=== PATIENT | female | born 1965 | race Caucasian/White ===

== ENCOUNTER 2018-06-12 21:17 | Inpatient (IN) | payer MEDICAID ==
[~2018-06-12] VITALS: Ht 304.8 cm; Wt 93.0 kg
[2018-06-12] MEDS ORDERED: ASPIRIN 81MG TABLET PO ONE (22:45)
[2018-06-12] MEDS ORDERED: NITROGLYCERIN 0.4MG TABLET SL SL PRN (22:45)
[2018-06-12 23:53] LABS: BASOPHILS % 0.4 % (0.0-2.0); HEMATOCRIT. 39.8 % (36.0-48.0); HEMOGLOBIN. 13.3 g/dL (12.0-16.0); LYMPHOCYTES % 37.8 % (20.0-50.0); MEAN CORPUSCULAR HEMOGLOBIN 26.8 pg (28.0-32.0); MEAN CORPUSCULAR VOLUME 80.1 fL (81.0-99.0); MEAN PLATELET VOLUME 9.1 fl (7.4-10.4); MONOCYTES % 5.1 % (2.0-8.0); NEUTROPHILS % 54.7 % (40.0-76.0); PLATELET 262 x1000/uL (130-400); RED BLOOD CELL COUNT 4.97 mill/uL (4.2-5.4)
[2018-06-13 00:03] LABS: D-DIMER 0.21 mg/L FEU (<0.50); PARTIAL THROMBOPLASTIN TIME 26.8 sec (23.4-31.0)
[2018-06-13 00:04] LABS: CHLORIDE 104 mEq/L (98-107)
[2018-06-13 09:00] VITALS: BP 130/72
[2018-06-13 09:10] VITALS: BP 130/72
[2018-06-13] MEDS ORDERED: ACETAMINOPHEN 325MG TABLET PO PRN (10:45)
[2018-06-13] MEDS ORDERED: ONDANSETRON HCL 4MG/2ML INJ IV PRN (10:45)
[2018-06-13] MEDS ORDERED: CLONIDINE 0.1MG TABLET PO PRN (10:45)
[2018-06-13] MEDS ORDERED: IPRATROPIUM/ALBUTEROL 0.5-3(2.5)MG/3ML NEB INH PRN (10:45)
[2018-06-13] MEDS ORDERED: MAGNESIUM/ALUMINUM HYDROXIDE/SIMETHICONE 30ML UDC PO PRN (10:45)
[2018-06-13] MEDS ORDERED: DEXTROSE 50% WATER 50ML SYRINGE IV PRN (11:45)
[2018-06-13 12:06] VITALS: BP 120/76
[2018-06-13] MEDS: BLOOD SUGAR DIAGNOSTIC STRIP TEST SCH ×3 (12:27→21:00)
[2018-06-13] MEDS: INSULIN LISPRO 100 UNITS/ML SUBCUT SCH ×3 (12:50→21:37)
[2018-06-13 16:14] LABS: CREATINE KINASE 113 IU/L (26-192); CREATINE KINASE MB FRACTION < 1.0 ng/mL (0.5-3.6)
[2018-06-13] MEDS: HYDROCODONE/ACETAMINOPHEN 5/325MG TABLET PO PRN (18:35)
[2018-06-13 20:00] VITALS: BP 114/69
[2018-06-14 00:01] VITALS: BP 113/68
[2018-06-14 00:15] LABS: CREATINE KINASE 101 IU/L (26-192); CREATINE KINASE MB FRACTION < 1.0 ng/mL (0.5-3.6)
[2018-06-14 04:00] VITALS: BP 111/75
[2018-06-14 06:49] LABS: BASOPHILS % 0.4 % (0.0-2.0); EOSINOPHILS % 3.1 % (0.0-5.0); HEMATOCRIT. 41.7 % (36.0-48.0); HEMOGLOBIN. 13.8 g/dL (12.0-16.0); LYMPHOCYTES % 39.6 % (20.0-50.0); MEAN CORPUSCULAR HEMOGLOBIN 26.6 pg (28.0-32.0); MEAN CORPUSCULAR VOLUME 80.4 fL (81.0-99.0); MEAN PLATELET VOLUME 9.3 fl (7.4-10.4); MONOCYTES % 5.8 % (2.0-8.0); NEUTROPHILS % 51.1 % (40.0-76.0); PLATELET 273 x1000/uL (130-400); RED BLOOD CELL COUNT 5.19 mill/uL (4.2-5.4); RED CELL DISTRIBUTION WIDTH 13.8 % (11.6-14.6)
[2018-06-14 06:54] LABS: CHLORIDE 102 mEq/L (98-107)
[2018-06-14 07:20] LABS: HDL CHOLESTEROL 35 mg/dL (40-59); LDL CHOLESTEROL 127 mg/dL (5-100); T4 FREE 1.06 ng/dL (0.76-1.46)
[2018-06-14] MEDS: BLOOD SUGAR DIAGNOSTIC STRIP TEST SCH ×4 (07:20→21:00)
[2018-06-14 08:40] VITALS: BP 134/58
[2018-06-14] MEDS: INSULIN LISPRO 100 UNITS/ML SUBCUT SCH ×4 (08:47→21:00)
[2018-06-14] MEDS: ASPIRIN 81MG EC TABLET PO SCH (08:48)
[2018-06-14 12:17] VITALS: BP 112/64
[2018-06-14 16:17] VITALS: BP 117/68
[2018-06-14 20:00] VITALS: BP 126/64
[2018-06-14] MEDS: HYDROCODONE/ACETAMINOPHEN 5/325MG TABLET PO PRN (21:31)
[2018-06-15] VITALS: BP 110/62
[2018-06-15 04:00] VITALS: BP 124/70
[2018-06-15] MEDS: BLOOD SUGAR DIAGNOSTIC STRIP TEST SCH ×2 (08:18→12:20)
[2018-06-15] MEDS: ASPIRIN 81MG EC TABLET PO SCH (08:19)
[2018-06-15] MEDS: INSULIN LISPRO 100 UNITS/ML SUBCUT SCH ×2 (08:22→12:37)
[2018-06-15 13:01] VITALS: BP 108/70
[2018-06-15 16:00] VITALS: BP 112/69
== END 2018-06-15 17:40 | disposition home or self-care (01) | DRG 203 ==
LOC: ER 21:17 → 6WST 06-13 01:04 → EDBEDREQ 06-13 01:06 → EDBEDREQTM 06-13 01:06 → ENRESERV 06-13 06:10 → 6WST 06-13 10:34
PROVIDERS: ADMIT Internal Medicine; ATTEND Internal Medicine
DX: M94.0 Chondrocostal junction syndrome [Tietze] (principal); E11.319 Type 2 diabetes mellitus with unspecified diabetic retinopathy without macular edema; I25.10 Atherosclerotic heart disease of native coronary artery without angina pectoris; I10 Essential (primary) hypertension; E66.9 Obesity, unspecified; R00.2 Palpitations; Z68.1 Body mass index [BMI] 19.9 or less, adult
CPT/HCPCS: 36415; 71045; 80061; 82550; 82553; 82962; 83880; 84439; 84443; 84481; 84484; 85379; 93005; 93306; 93970; 99285; J1815